=== PATIENT | male | born 2000 | race Caucasian/White ===

== ENCOUNTER 2020-05-11 03:33 | Emergency (ER) | payer OTHER, SELFPAY ==
[2020-05-11 03:42] VITALS: BP 147/73; PULSE 61; RESP 16; TEMP 37.1; O2SAT 100
--- NOTE | 2020-05-11 03:46 | PC.NURSE ---
reviewed home medications, during documentation Nick dispensed lexapro & wellbutrin to patient end of march. Patient & mom cont to deny on any medications
--- NOTE | 2020-05-11 03:55 | ED.GENADULT ---
HPI - General Adult General Chief complaint: Unspecified Stated complaint: headache History of Present Illness HPI narrative: 20-year-old male presents with his mother with some pressure headache in mid frontal sinus area started this this morning has been off and on for about a week but intensified this morning pressure-like sensation with nasal congestion, chills no fevers no nausea vomiting no shortness of breath no blurry vision does feel like there is ear pressure with no chest pain no abdominal pain. Onset (ago): day(s) Location: head Radiation: non-radiation Severity: moderate Severity scale (1-10): 8 Quality: other ( Pressure sensation) Pain Consistency: constant Treatments prior to arrival: NSAID Related Data Allergies Allergy/AdvReac Type Severity Reaction Status Date / Time No Known Allergies Allergy Verified 05/11/20 03:44 Review of Systems Review of Systems: All systems reviewed & are unremarkable except as noted in HPI and below [facility] Past Medical History Medical History Depression Exam Const: General: cooperative, healthy appearing, comfortable, no acute distress and well developed HENMT: Head: normal to inspection Head images: 1. tender with palpation Ears: TM abnormal General nose exam: Abnormal mucous membranes and turbinates present Face and sinus: Facial tenderness on exam of face and sinuses Face images: 1. frontal sinus tenderness Eyes: General: appearance normal, both eyes and all related structures Eyelids: eyelids normal Conjunctivae: conjunctivae normal Pupils: Equal, round and reactive pupils present Neck: Neck: normal visual inspection, full ROM, no lymphadenopathy and no meningeal signs Chest: Chest palpation & inspection: normal inspection of the chest and normal palpation of entire chest wall Resp: Effort & Inspection: normal respiratory effort and able to speak in complete sentences Auscultation: clear to auscultation bilaterally Cardio: Jugular venous distension: no JVD Palpation: normal PMI Rate: regular rate Rhythm: regular rhythm Heart sounds: S1 normal heart sound present and S2 normal heart sound present Psych: Appearance: grossly normal and well kempt Mental Status: mental status grossly normal Speech and movement: Normal speech and movement present Course Course Emergency Course: Pain level improved with tordal Vital Signs Vital signs: Vital Signs Temperature 37.1 C 05/11/20 03:42 Pulse Rate 61 05/11/20 03:42 Respiratory Rate 16 05/11/20 03:42 Blood Pressure 147/73 H 05/11/20 03:42 Pulse Oximetry 100 05/11/20 03:42 Temperature 37.1 C 05/11/20 03:42 Pulse Rate 61 05/11/20 03:42 Respiratory Rate 16 05/11/20 03:42 Blood Pressure 147/73 H 05/11/20 03:42 Pulse Oximetry 100 05/11/20 03:42 Medical Decision Making Vital Signs Vital Signs: Vital Signs Temperature 37.1 C 05/11/20 03:42 Pulse Rate 61 05/11/20 03:42 Respiratory Rate 16 05/11/20 03:42 Blood Pressure 147/73 H 05/11/20 03:42 Pulse Oximetry 100 05/11/20 03:42 Temperature 37.1 C 05/11/20 03:42 Pulse Rate 61 05/11/20 03:42 Respiratory Rate 16 05/11/20 03:42 Blood Pressure 147/73 H 05/11/20 03:42 Pulse Oximetry 100 05/11/20 03:42 Critical Care Time Critical Care Time Critical Care Time: No Discharge Plan Discharge Clinical Impression: Sinus headache Sinusitis Qualifiers: Sinusitis location: frontal Chronicity: acute Recurrence: non-recurrent Qualified Code(s): J01.10 - Acute frontal sinusitis, unspecified Patient Disposition: Home, Self-Care Condition: Stable Instructions: Antibiotic Form, Sinusitis (ED) Additional Instructions: can take Claritin daily x1 week, take medicine as prescribed and follow-up with primary care physician if symptoms persist or worsen. Prescriptions: New azithromycin [Zithromax Z-Angelito] 250 mg tablet
[2020-05-11] MEDS: KETOROLAC (*BKC) 60 MG/2 ML VIAL IM (03:58)
[2020-05-11 04:05] VITALS: BP 140/70; PULSE 73; RESP 16; TEMP 36.6; O2SAT 98
== END 2020-05-11 04:06 | disposition home or self-care (01) ==
PROVIDERS: Emergency Provider Emergency Medicine; PCP Family Medicine
DX: J01.10 Acute frontal sinusitis, unspecified (principal)
CPT/HCPCS: 96372; 99283; J1885

== ENCOUNTER 2022-05-06 08:27 | Emergency (ER) | payer OTHER, SELFPAY ==
[2022-05-06 08:39] VITALS: BP 120/76; PULSE 61; RESP 16; TEMP 36.8; O2SAT 100
--- NOTE | 2022-05-06 09:15 | ED.EAR ---
HPI - Ear Problem General Chief complaint: Ear Stated complaint: EARACHE/CLOGGED Time Seen by Provider: 05/06/22 09:04 Source: patient Mode of arrival: ambulatory Limitations: no limitations History of Present Illness HPI Narrative: Patient presents today complaining of left ear clogging with absent hearing today. He has been using wax softening drops since yesterday without relief of symptoms. Denies pain or any additional symptoms. Related Data Home Medications Medication Instructions Recorded Confirmed No Home Medications 05/06/22 05/06/22 Allergies Allergy/AdvReac Type Severity Reaction Status Date / Time No Known Allergies Allergy Verified 05/06/22 08:58 Review of Systems Review of Systems: CONSTITUTIONAL: Denies body aches, fever, chills, or sweats. EYES: Denies visual changes, redness, or discharge. ENT: Denies rhinorrhea, congestion, sore throat, or otalgia.+ left ear clogging and absent hearing CARDIOVASCULAR: Denies chest pain, palpitations, or edema. RESPIRATORY: Denies cough or dyspnea. GASTROINTESTINAL: Denies abdominal pain, nausea, vomiting, or diarrhea. GENITOURINARY: Denies dysuria or hematuria. SKIN: Denies rash, itching, or wounds. MUSCULOSKELETAL: Denies back pain, joint pain, or myalgia. NEUROLOGIC: Denies headache, numbness, tingling, or weakness. PSYCH: Denies depression or anxiety. [facility] Past Medical History Medical History Depression Comments At time of signature, I have reviewed and agree with nursing past medical, surgical, social and family history unless otherwise noted. Please see nursing chart for further information. There is no relevant family history pertinent to the presenting complaint Exam Narrative: GENERAL: Well-appearing, well-nourished, and in no acute distress. HEAD: Normocephalic, atraumatic. EYES: EOMI. No redness or drainage. Conjunctivae normal. ENT: Mucous membranes pink and moist. Nares clear. No rhinorrhea. Bilateral cerumen impactions, left greater than right. See procedure note NECK: Normal AROM. CHEST: No respiratory distress. EXTREMITIES: Normal range of motion. No edema. SKIN: Warm, dry, no rash. Capillary refill normal. Normal skin turgor. NEURO: No focal deficits. Alert and oriented x3. Gait steady. PSYCH: Normal affect. No signs of depression or anxiety. Course Course Level of Care: Express Care Visit Vital Signs Vital signs: Vital Signs Temperature 98.2 F 05/06/22 08:39 Pulse Rate 61 05/06/22 08:39 Respiratory Rate 16 05/06/22 08:39 Blood Pressure 120/76 05/06/22 08:39 Pulse Oximetry 100 05/06/22 08:39 Oxygen Delivery Room Air 05/06/22 08:39 Temperature 98.2 F 05/06/22 08:39 Pulse Rate 61 05/06/22 08:39 Respiratory Rate 16 05/06/22 08:39 Blood Pressure 120/76 05/06/22 08:39 Pulse Oximetry 100 05/06/22 08:39 Oxygen Delivery Room Air 05/06/22 08:39 Reviewed Procedures Ear Wax Removal Both Ears: Ear Wax Removal Date: 05/06/22 Ear Wax Removal Time: 09:16 Results: Re-examined: cerumen removed completely TM Examination: TM(s) intact, normal appearance Ear Canal Exam: atraumatic Patient Tolerated Procedure: well Complications: no problems Technique: ear canal curetted Medical Decision Making Differential Diagnosis Differential Diagnosis: Otitis media, otitis externa, ruptured TM, serous otitis, eustachian tube dysfunction, cerumen impaction Vital Signs Vital Signs: Vital Signs Temperature 98.2 F 05/06/22 08:39 Pulse Rate 61 05/06/22 08:39 Respiratory Rate 16 05/06/22 08:39 Blood Pressure 120/76 05/06/22 08:39 Pulse Oximetry 100 05/06/22 08:39 Oxygen Delivery Room Air 05/06/22 08:39 Temperature 98.2 F 05/06/22 08:39 Pulse Rate 61 05/06/22 08:39 Respiratory Rate 16 05/06/22 08:39 Blood Pressure 120/76 05/06/22 08:39 Pulse Oxime
== END 2022-05-06 09:23 | disposition home or self-care (01) ==
PROVIDERS: Emergency Provider Nurse Practitioner; PCP Family Medicine
DX: H61.23 Impacted cerumen, bilateral (principal)
CPT/HCPCS: 69210; 99212; G0463

== ENCOUNTER 2023-01-24 14:06 | Emergency (ER) | payer OTHER, SELFPAY ==
[2023-01-24] VITALS (22 sets, daily range): BP systolic 116–142; BP diastolic 52–77; PULSE 64–95; RESP 9–28; TEMP 36.1; O2SAT 98–100
--- NOTE | ~2023-01-24 | XR_ITS ---
EXAMINATION: XR chest 2V DATE: 01/24/2023 15:56 INDICATION: Syncope. Vomiting. TECHNIQUE: Frontal and lateral views of the chest were obtained. COMPARISON: None. FINDINGS: There is no pneumonia, pleural effusion, or pneumothorax. The heart size is normal. IMPRESSION: 1. No acute cardiopulmonary disease. Reviewed, dictated and finalized at location E.
--- NOTE | ~2023-01-24 | CT_ITS ---
EXAMINATION: CT brain wo con DATE: 01/24/2023 15:49 INDICATION: Syncope. TECHNIQUE: Computed tomography (CT) of the head was performed without intravenous contrast. The mA wa s adjusted according to patient size. Iterative reconstruction technique was employed. The dose-lengt h product was 605.33 mGy-cm. COMPARISON: None FINDINGS: There is no intracranial hemorrhage, acute infarction, or abnormal intracranial mass lesion . The ventricles are normal in size. The orbits are normal. The paranasal sinuses are clear. The mast oid air cells are normal. IMPRESSION: 1. Normal brain. Reviewed, dictated and finalized at location E. IMPRESSION: 1. Normal brain.
[2023-01-24 14:36] LABS: Basophils Absolute Auto 0.1 K/mm3 (0.0-0.1); Basophils Percent Auto 0.7 % (0.2-1.2); Eosinophils Absolute Auto 0.2 K/mm3 (0-0.3); Eosinophils Percent Auto 1.3 % (0-4.4); Hematocrit 46.3 % (42.0-52.0); Hemoglobin 15.5 g/dL (14.0-18.0); Immature Granulocyte Absolute 0.09 K/mm3 (0.00-0.031); Immature Granulocyte Percent A 0.7 % (0-0.5); Lymphocytes Absolute Auto 3.65 K/mm3 (0.9-3.2); Lymphocytes Percent Auto 29.6 % (18.3-44.2); Mean Corpuscular HGB Conc 33.5 g/dl (32-36); Mean Corpuscular Hemoglobin 31.1 pg (26-34); Mean Corpuscular Volume 92.8 fl (80-100); Mean Platelet Volume 11.8 fl (7.4-10.4); Monocytes Absolute Auto 1.2 K/mm3 (0.1-0.6); Monocytes Percent Auto 9.5 % (2.6-8.5); Neutrophils Absolute Auto 7.2 K/mm3 (1.3-6.7); Neutrophils Percent Auto 58.2 % (45.5-73.1); Platelet Count Result 253 k/mm3 (150-375); Red Blood Count 4.99 M/mm3 (4.6-6.20); Red Cell Distribution Width 12.1 % (11.5-14.5); White Blood Count 12.4 K/mm3 (4.5-10.0)
[2023-01-24 14:43] LABS: Appearance Urine Clear (Clear); Bilirubin Urine Negative (Negative); Blood Urine Negative (Negative); Color Urine Yellow (Yellow); Glucose Urine UA Negative (Negative); Ketones Urine Negative (Negative); Leukocyte Esterase Ur Negative LEU/UL (Negative); Nitrate Urine Negative (Negative); Protein Urine Negative (Negative); Specific Grav Ur 1.005 (1.001-1.035); Urobilinogen Urine 0.2 mg/dL (<2.0); pH Urine 5.5 (5.0-9.0)
[2023-01-24 14:46] LABS: Add Urine Microscopic? NO
[2023-01-24 14:49] LABS: Alanine Aminotransferase 70 U/L (6-50); Albumin Level 4.9 g/dL (3.5-5.1); Alkaline Phosphatase 42 U/L (38-126); Anion Gap 14 mmol/L (8-16); Aspartate Amino Transferase 45 U/L (17-59); Bilirubin,Total 0.6 mg/dL (0.2-1.3); Blood Urea Nitrogen 17 mg/dL (9-20); Calcium 9.1 mg/dL (8.4-10.2); Carbon Dioxide 23 mmol/L (22-30); Chloride 102 mmol/L (98-107); Estimated CRCL calculation 96 ml/min; Estimated Glomerular Filt Rate > 60; Glucose 113 mg/dL (65-110); Lipase 132 U/L (23-300); Potassium 2.9 mmol/L (3.4-5.0); Sodium 139 mmol/L (137-145)
--- NOTE | 2023-01-24 15:06 | ECG_ITS ---
Measurements Intervals [place] Rate: 71 P: 71 DC: 136 QRS: -32 QRSD: 143 T: 76 QT: 420 QTc: 459 Interpretive Statements SINUS RHYTHM LEFT ATRIAL ENLARGEMENT VENTRICULAR PREEXCITATION/WPW ABNORMAL ECG NO PREVIOUS ECG AVAILABLE FOR COMPARISON Electronically Signed On 01-25-2023 15:30:52 CDT by Toy Huynh M.D.
[2023-01-24] MEDS: SODIUM CHLORIDE 0.9% IV 1,000 ML 999 ML IV CONT ×2 (15:23→15:24)
[2023-01-24] MEDS: POTASSIUM CHLORIDE 20 MEQ ER TABLET 40 MEQ PO ×2 (15:23→18:00)
--- NOTE | 2023-01-24 15:31 | ED.GENADULT ---
HPI - General Adult General Chief complaint: Nausea/Vomiting/Diarrhea Stated complaint: dyspnea, dizzy Time Seen by Provider: 01/24/23 14:25 Source: patient, family and RN notes reviewed Mode of arrival: ambulatory Limitations: no limitations History of Present Illness HPI narrative: Patient is a 22 y/o male who presents to the ED with c/o syncopal episode. Patient reports he was riding in his [employer]'s car and they were delivering [employer] orders this afternoon. Patient began feeling unwell and wanted to go home. He reported feeling lightheaded, nauseous, sweaty. He began having tunnel vision and heart palpitations. He states he noticed his heart rate on his Apple Watch to be elevated up to 115-120 bpm. Patient then had a syncopal episode that his fianc?e witnessed. She states he was nonresponsive with his eyes rolled in the back of his head for approximately 20 seconds before he came to. Patient then had several episodes of vomiting after regaining full consciousness. His fianc?e then brought him here. Patient still feels somewhat lightheaded currently. Nausea resolved. No abdominal pain. Denies chest pain or shortness of breath. Denies any headache or vision changes. He does mention that he saw his primary care doctor on Wednesday as he has had been having some intermittent palpitations, left-sided chest pain/left shoulder pain. He notes a history of previous left shoulder surgery and thought this may be related. 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 He states he was referred to a willower. Mother at bedside reports a family history of coronary disease, but denies family history of sudden cardiac . Per triage note, patient had a marijuana edible around 11 AM. Related Data Home Medications Medication Instructions Recorded Confirmed No Home Medications 05/06/22 05/06/22 Allergies Allergy/AdvReac Type Severity Reaction Status Date / Time No Known Allergies Allergy Verified 01/24/23 14:28 Review of Systems Review of Systems: CONSTITUTIONAL: Denies fever, chills, or sweats. EYES: Denies visual changes. CARDIOVASCULAR: See HPI. RESPIRATORY: Denies dyspnea. GASTROINTESTINAL: See HPI. MUSCULOSKELETAL: Denies back pain, joint pain, or myalgia. NEUROLOGIC: See HPI. All systems reviewed & are unremarkable except as noted in HPI and below PMFSH Past Medical History Medical History Depression Exam Narrative: GENERAL: Well appearing, obese with BMI of 31.4, non-toxic, in no acute distress. HEAD: Normocephalic, atraumatic. NECK: Supple. No adenopathy, no masses. RESPIRATORY: Airway patent, respirations nonlabored. Clear to auscultation bilaterally, no rales, rhonchi, wheezing. CARDIOVASCULAR: Regular rate and rhythm without murmurs, rubs, or gallops. Peripheral pulses 2+ and equal bilaterally. ABDOMINAL: Soft, nontender, nondistended, no hepatosplenomegaly. Normoactive BS. MUSCULOSKELETAL: Moves all extremities. Strength/ROM intact without gross deformities. No edema. SKIN: Warm, dry, normal color. No rashes. NEURO: A&O X3. Speech clear. Cranial nerves II-XII grossly intact. Steady gait. No ataxic movements. Equal locker operator bilaterally. Strength 5 out of 5 in upper and lower extremities bilaterally. No focal neurologic deficits. PSYCHIATRIC: Appropriate mood and affect. Normal interaction. Course Vital Signs Vital signs: Vital Signs Temperature 97.0 F L 01/24/23 14:07 Pulse Rate 79 01/24/23 14:07 Respiratory Rate 20 01/24/23 14:07 Blood Pressure 141/52 H 01/24/23 14:07 Pulse Oximetry 99 01/24/23 14:07 Oxygen Delivery Room Air 01/24/23 14:07 Temperature 97.0 F L 01/24/23 14:07 Pulse Rate 68 01/24/23 16:17 Respiratory Rate 19 01/24/23 16:17 Blood Pressure 127/74 01/24/23 16:16 Pulse Oximetry 100 01/24/23 16:17 Oxygen Delivery Room Air
[2023-01-24 15:45] LABS: Magnesium 2.2 mg/dL (1.6-2.3)
[2023-01-24 15:57] LABS: Troponin I < 0.012 ng/mL (0.000-0.034)
== END 2023-01-24 18:28 | disposition home or self-care (01) ==
PROVIDERS: Preventive Medicine Aerospace Medicine; Emergency Provider Physician Assistant; PCP Family Medicine
DX: R55 Syncope and collapse (principal); R00.2 Palpitations; I45.6 Pre-excitation syndrome; E87.6 Hypokalemia; R94.31 Abnormal electrocardiogram [ECG] [EKG]
CPT/HCPCS: 36415; 70450; 71046; 80053; 81003; 83690; 83735; 84484; 85025; 93005; 96360; 96361; 99284; A9270; J7030

== ENCOUNTER 2023-02-06 16:40 | Emergency (ER) | payer OTHER, SELFPAY ==
--- NOTE | ~2023-02-06 | XR_ITS ---
XR chest 2V DATE: 02/06/2023 17:07 INDICATION: Chest pressure TECHNIQUE: AP and lateral views COMPARISON: 01/24/2023 PA and lateral chest FINDINGS: A heart monitor device. Normal heart size. No hilar or mediastinal enlargement. No pulmonary infiltrate or consolidation, pleural effusion or pulmonary vascular congestion or pneumo thorax is detected. Mild thoracic dextroscoliosis. IMPRESSION: No active cardiopulmonary disease Reviewed, dictated and finalized at location A.
[2023-02-06 16:45] VITALS: BP 139/81; PULSE 86; RESP 13; O2SAT 100
[2023-02-06 16:47] VITALS: BP 139/81; PULSE 80; RESP 14; O2SAT 100
--- NOTE | 2023-02-06 16:49 | ECG_ITS ---
Measurements Intervals [place] Rate: 78 P: 66 NV: 125 QRS: -5 QRSD: 138 T: 88 QT: 396 QTc: 453 Interpretive Statements SINUS RHYTHM WITH SINUS ARRHYTHMIA VENTRICULAR PREEXCITATION/WPW COMPARED TO ECG 01/24/2023 15:24:43 SINUS ARRHYTHMIA NOW PRESENT Electronically Signed On 02-07-2023 11:12:33 CDT by Juani Barajas MD
--- NOTE | 2023-02-06 16:53 | ED.ARRPALP ---
HPI - Arrhythmia/Palpitations General Chief Complaint: Arrhythmia/Palpitations Stated Complaint: Dizziness, Syncopal Episode Time Seen by Provider: 02/06/23 16:51 Source: patient and RN notes reviewed Mode of arrival: ambulatory Limitations: no limitations History of Present Illness HPI narrative: 22 years old white male came to the emergency room by private car with lightheadedness and intermittent feeling like she is going to pass out. Patient reported the highest heart rate at that time was 111. Patient had a recent diagnosis of WPW with blacking out 2 weeks ago. Currently have a Holter monitor on. On arrival to the ED patient feeling much better, denies any fever, chills, nausea, vomiting, chest pain or shortness of breath or headache. History of anxiety and panic attack. He denies any drug use or abuse. Related Data Allergies Allergy/AdvReac Type Severity Reaction Status Date / Time No Known Allergies Allergy Verified 02/06/23 16:50 Review of Systems Review of Systems: All systems reviewed & are unremarkable except as noted in HPI and below PMFSH Past Medical History Medical History Depression Social History Social History Smoking status: Never smoker Exam Narrative: General appearance: Well-developed, well-nourished Skin: Normal color Head: Normocephalic, nontraumatic Eyes: Clear conjunctiva ENT: Oropharynx normal, ears normal, nose normal Neck: Supple, nontender Chest and respiratory: Airway patent, no respiratory distress, no accessory muscle use Heart: Regular rate/rhythm Abdomen: Soft, nontender, no organomegaly, quiet bowel sounds Vascular: Normal peripheral pulses, normal capillary refill. Musculoskeletal: Normal range of motion, nontender back Neurologic: Alert and oriented ?3, SERVICENOW ADMINISTRATOR is normal as tested, no gross motor deficit Course Reevaluation(s) Reevaluation #1: Feeling much better, back to normal at the time of discharge. Date: 02/06/23 Time: 18:20 Consultations Consultation #1: Dr. Kim He requested that patient can go home. Because he did not get any notification about tachyarrhythmia. As long as patient have Holter monitor, he can go home, and he can come back for any syncope. Date: 02/06/23 Time: 18:52 Vital Signs Vital signs: Vital Signs Pulse Rate 86 02/06/23 16:45 Respiratory Rate 13 02/06/23 16:45 Blood Pressure 139/81 02/06/23 16:45 Pulse Oximetry 100 02/06/23 16:45 Pulse Rate 82 02/06/23 18:00 Respiratory Rate 15 02/06/23 18:00 Blood Pressure 145/88 H 02/06/23 18:00 Pulse Oximetry 100 02/06/23 18:00 Oxygen Delivery Room Air 02/06/23 16:47 MDM - Arrhythmia/Palpitations MDM Narrative Medical decision making narrative: Patient presents with lightheadedness and near syncope. Had recurrent similar symptoms in the last 2 to 3 weeks, last one was 2 weeks ago with syncope, patient found to have EKG with WPW criteria. Patient scheduled for cardiac ablation March 11, 2023. Patient had Holter monitor January 25, until now. History of anxiety and depression which runs in family. EKG on arrival to the ED showed normal sinus rhythm with WPW criteria. Work-up today showed no acute abnormalities Dr. Kim was notified and recommended to discharge patient home, and he did not have any notification that the patient have tachyarrhythmia. I agreed with antianxiety medication in the meantime. The pt was discharged to home.the pt,s condition upon discharge was fair,education was provided to the pt in reference to the final impression,discharge study results,treatment,
[2023-02-06 17:07] LABS: Basophils Absolute Auto 0.1 K/mm3 (0.0-0.1); Basophils Percent Auto 0.7 % (0.2-1.2); Eosinophils Absolute Auto 0.2 K/mm3 (0-0.3); Eosinophils Percent Auto 2.1 % (0-4.4); Hematocrit 45.6 % (42.0-52.0); Hemoglobin 15.9 g/dL (14.0-18.0); Immature Granulocyte Absolute 0.03 K/mm3 (0.00-0.031); Immature Granulocyte Percent A 0.4 % (0-0.5); Lymphocytes Absolute Auto 2.27 K/mm3 (0.9-3.2); Lymphocytes Percent Auto 30.5 % (18.3-44.2); Mean Corpuscular HGB Conc 34.9 g/dl (32-36); Mean Corpuscular Hemoglobin 31.2 pg (26-34); Mean Corpuscular Volume 89.6 fl (80-100); Mean Platelet Volume 11.9 fl (7.4-10.4); Monocytes Absolute Auto 0.8 K/mm3 (0.1-0.6); Monocytes Percent Auto 10.2 % (2.6-8.5); Neutrophils Absolute Auto 4.2 K/mm3 (1.3-6.7); Neutrophils Percent Auto 56.1 % (45.5-73.1); Platelet Count Result 210 k/mm3 (150-375); Red Blood Count 5.09 M/mm3 (4.6-6.20); Red Cell Distribution Width 11.7 % (11.5-14.5); White Blood Count 7.5 K/mm3 (4.5-10.0)
[2023-02-06 17:13] LABS: INR 0.9; Prothrombin Time 12.8 Seconds (11.1-14.7)
[2023-02-06 17:14] LABS: Partial Thromboplastin Time 27.9 SECONDS (22.3-36.8)
[2023-02-06 17:15] VITALS: BP 145/83; PULSE 80; RESP 16; O2SAT 100
[2023-02-06 17:15] LABS: Alanine Aminotransferase 50 U/L (6-50); Albumin Level 5.2 g/dL (3.5-5.1); Alkaline Phosphatase 32 U/L (38-126); Anion Gap 11 mmol/L (8-16); Aspartate Amino Transferase 45 U/L (17-59); Bilirubin,Total 0.7 mg/dL (0.2-1.3); Blood Urea Nitrogen 23 mg/dL (9-20); Calcium 9.5 mg/dL (8.4-10.2); Carbon Dioxide 25 mmol/L (22-30); Chloride 104 mmol/L (98-107); Estimated CRCL calculation 126 ml/min; Estimated Glomerular Filt Rate > 60; Glucose 83 mg/dL (65-110); Lipase 143 U/L (23-300); Sodium 140 mmol/L (137-145)
[2023-02-06 17:25] LABS: Troponin I < 0.012 ng/mL (0.000-0.034)
[2023-02-06 17:43] LABS: Thyroid Stimulating Hormone 0.833 uIU/mL (0.465-4.680)
[2023-02-06 17:45] VITALS: BP 148/99; PULSE 75; RESP 17; O2SAT 99
[2023-02-06 18:00] VITALS: BP 145/88; PULSE 82; RESP 15; O2SAT 100
== END 2023-02-06 18:23 | disposition home or self-care (01) ==
PROVIDERS: Emergency Provider Emergency Medicine; PCP Family Medicine
DX: I45.6 Pre-excitation syndrome (principal); F32.A Depression, unspecified
CPT/HCPCS: 36415; 71046; 80053; 83690; 84443; 84484; 85025; 85610; 85730; 93005; 99284

== ENCOUNTER 2024-11-02 12:44 | Emergency (ER) | payer OTHER, SELFPAY ==
[2024-11-02] VITALS (13 sets, daily range): BP systolic 64–134; BP diastolic 41–73; PULSE 61–110; RESP 12–30; TEMP 36.4; O2SAT 98–100
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
--- OUTSIDE RECORDS SUMMARY | 2024-11-02 12:46 | XMS_ITS | Clinical Summary ---
Author Organization [facility] Address [address] [place] [address] Care Team Providers Care Oil Process Stillman Name Role Phone Pantera Ness MD Primary Care Provide r Allergies No known active allergies Medications cholecalciferol (VITAMIN D-3) 5,000 unit tabletIndication s:supplement Take 1 tablet (5,000 Units total) by mouth nightly Active magnesium glycinate 100 mg tabletIndication s:supplement Take 1,000 mg by mouth nightly Active omega-3 fatty acids (FISH OIL CONCENTRATE ORAL)Indications :supplement Take 1,600 mg by mouth 2 (two) times a day Active aspirin 325 mg enteric coated tablet Take 1 tablet (325 mg total) by mouth daily 30 tablet 3 Active hydrOXYzine (VISTARIL) 25 mg capsule every 6 (six) hours as needed For anxiety and motion sickness 3 Active Active Problems Problem Noted Date Diagnosed Date 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 Currently in NSR after study. EP following -ASA 325 mg daily x 30 days -telemetry ordered -EP followed up, ok for discharge Corneal abrasion of both eyes 04/19/2023 Assessment & Plan (04/20/2023 10:07 AM MANAGER OF ENGINEERING): Bilateral eye grittiness and photosensitivity when waking from EP study. Evaluated by ophthalmology with exam cw bilateral corneal abrasion. -moxifloxacin BID x4 days per ophthalmology -refresh eye drops PRN SVT (supraventricular tachycardia) 03/12/2023 Disorder of shoulder 03/19/2014 Closed fracture of distal radius and ulna 2011 Surgical History Surgery Date Site/Laterality Comments SHOULDER ARTHROSCOPY Medical History Medical History Date Comments Motion sickness Family History Medical History Relation Name Comments Heart disease Maternal Grandfather Hypertension Mother Anesthesia problems Neg Hx Relation Name Status Comments Father Alive Maternal Grandfather Maternal Grandmother Mother Alive Social History Tobacco Use Types Packs/Day Years Used Date Smoking Tobacco: Never Smokeless Tobacco: Never AUDIT-C Answer Date Recorded Q1: How often do you have a drink containing alc ohol? 2-4 times a month 04/19/2023 Q2: How many drinks containi ng alcohol do you have on a typical day when you are drinking? 7 to 9 04/19/2023 Q3: How often do you have si x or more drinks on one occasion? Monthly 04/19/2023 Personal Safety Answer Date Recorded Have you ever been in or are you currently in a harmful physical or emotional relationship or is someone making you feel afraid or unsafe? Denies 04/19/2023 Sex and Gender Information Value Date Recorded Sex Assigned at Not on file Legal Sex Male 12:45 AM MANAGER OF ENGINEERING Gender Identity Not on file Sexual Orientation Not on file Obstetrics History Last Filed Vital Signs Vital Sign Reading Time Taken Comments Blood Pressure 137/82 05/03/2023 11:24 AM MANAGER OF ENGINEERING Pulse 88 05/03/2023 11:24 AM MANAGER OF ENGINEERING Temperature 36.9 C (98.5 F) 05/03/2023 11:24 AM MANAGER OF ENGINEERING Respiratory Rate 18 04/20/2023 8:25 AM MANAGER OF ENGINEERING Oxygen Saturation 99% 05/03/2023 11: 24 AM MANAGER OF ENGINEERING Inhaled Oxygen Concentration - - Weight 107.8 kg (237 lb 9.6 oz) 023 11:24 AM MANAGER OF ENGINEERING Height 180.3 cm (5' 11 ) 05/03/2023 11: 24 AM MANAGER OF ENGINEERING Body Mass Index 33.14 05/03/2023 11:24 AM MANAGER OF ENGINEERING Plan of Treatment Health Maintenance Due Date Last Done Comments Depression Screening 1999 Hepatitis C Screening 1999 Regular Well Visit/Exam 18-64 2017 DTaP/Tdap/Td Vaccine (7 - Td or Tdap) 12/17/2020 12/17/2010, 11/04/2004, 08/16/2000, Additional history exists Covid-19 Vaccine (2023- season) 2024 11/05/2021, 10/15/2021 Influenza Vaccine (Season Ended) 2025 03/01/2020 Hepatitis B Screening Completed 1999 , 1999, 1999 Varicella Vaccines Completed 12/14/2013, 2000 HPV Vaccines Completed 09/14/2015, 05/15, 03/12/2015 Pneumococcal vaccine <65 Aged Out No longer eligible based on patient's age to complete this topic Medical Devices Implanted Type Area Sterile Instrument Technician Device Identifier Shelf Expiration Date Model / Serial / Lot [employer] Vascade Mvp 6-12fr Venous Closure [id number] - [id number] Implanted:Qty: 1 on 04/19/2023 by Kelly Fowler MD at [facility] Vascular Closure Device [employer] 12/16/2024 [id number]- [id number] / / [id number] 10C [employer] Vascade Mvp 6-12fr Venous Closure [id number] - [id number] Implanted:Qty: 1 on 04/19/2023 by Kelly Fowler MD at [facility] Vascular Closure Device [employer] 12/16/2024 [id number]- [id number] / / [id number] 10C [employer] Device Closure Vascade Od5 Fr Femoral Artery [id number] - [id number] Implanted:Qty: 1 on 04/19/2023 by Kelly Fowler MD at [facility] Vascular Closure Device [employer] 01/19/2025 [id number] / / [id number] [employer] Device Vascular Closure Femoral Artery Bioabsorbable Dual Method Vascade 6-7fr Collagen [id number] - [id number] Implanted:Qty: 1 on 04/19/2023 by Kelly Fowler MD at [facility] Vascular Closure Device [employer] 01/05/2025 [id number] / / [id number] Insurance [facility] [id number] [facility] [employer] H[employer] Advance Directives For more information, please contact: [phone] * Full Code (Latest Code Status on File) Date Activated Date Inactivated Comments 04/19/2023 6:34 PM 04/20/2023 3:16 PM Care Teams Oil Process Stillman Relationship Specialty Start Date End Date Pantera Ness MD [address] [place], [place] [id number] PCP - General Family Medicine 02/02/23
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
[2024-11-02 13:32] LABS: Basophils Absolute Auto 0.1 K/mm3 (0.0-0.1); Basophils Percent Auto 1.1 % (0.2-1.2); Eosinophils Absolute Auto 0.2 K/mm3 (0-0.3); Eosinophils Percent Auto 2.6 % (0-4.4); Hematocrit 45.1 % (42.0-52.0); Hemoglobin 14.7 g/dL (14.0-18.0); Immature Granulocyte Absolute 0.05 K/mm3 (0.00-0.031); Immature Granulocyte Percent A 0.6 % (0-0.5); Lymphocytes Absolute Auto 2.21 K/mm3 (0.9-3.2); Lymphocytes Percent Auto 25.3 % (18.3-44.2); Mean Corpuscular HGB Conc 32.6 g/dl (32-36); Mean Corpuscular Hemoglobin 30.8 pg (26-34); Mean Corpuscular Volume 94.4 fl (80-100); Mean Platelet Volume 11.9 fl (7.4-10.4); Monocytes Absolute Auto 0.9 K/mm3 (0.1-0.6); Monocytes Percent Auto 10.1 % (2.6-8.5); Neutrophils Absolute Auto 5.3 K/mm3 (1.3-6.7); Neutrophils Percent Auto 60.3 % (45.5-73.1); Platelet Count Result 206 k/mm3 (150-375); Red Blood Count 4.78 M/mm3 (4.6-6.20); Red Cell Distribution Width 11.9 % (11.5-14.5); White Blood Count 8.7 K/mm3 (4.5-10.0)
[2024-11-02] MEDS: ONDANSETRON INJ 4 MG/2 ML VIAL IV PUSH (13:38)
[2024-11-02] MEDS: SODIUM CHLORIDE 0.9% IV 1,000 ML 999 ML IV CONT (13:39)
[2024-11-02 13:41] LABS: Alanine Aminotransferase 47 U/L (6-50); Albumin Level 4.9 g/dL (3.5-5.1); Alkaline Phosphatase 42 U/L (38-126); Anion Gap 11 mmol/L (4-12); Aspartate Amino Transferase 46 U/L (17-59); Bilirubin,Total 0.5 mg/dL (0.2-1.3); Blood Urea Nitrogen 15 mg/dL (9-20); Calcium 9.5 mg/dL (8.4-10.2); Carbon Dioxide 27 mmol/L (22-30); Chloride 101 mmol/L (98-107); Estimated CRCL calculation 101 ml/min; Estimated Glomerular Filt Rate > 60; Glucose 114 mg/dL (65-110); Lipase 149 U/L (23-300); Potassium 4.1 mmol/L (3.4-5.0); Sodium 139 mmol/L (137-145)
[2024-11-02 13:45] LABS: Prothrombin Time 13.4 Seconds (11.1-14.7)
[2024-11-02 13:46] LABS: Partial Thromboplastin Time 22.6 Seconds (22.3-36.8)
--- OUTSIDE RECORDS SUMMARY | 2024-11-02 14:51 | XMS_ITS | Clinical Summary ---
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 Currently in NSR after study. EP following -ASA 325 mg daily x 30 days -telemetry ordered -EP followed up, ok for discharge Corneal abrasion of both eyes 04/19/2023 Assessment & Plan (04/20/2023 10:07 AM STEEL CRANE OPERATOR): Bilateral eye grittiness and photosensitivity when [...] on file Legal Sex Male 12:45 AM STEEL CRANE OPERATOR Gender Identity Not on file Sexual Orientation Not on file Obstetrics History Last Filed Vital Signs Vital Sign Reading Time Taken Comments Blood Pressure 137/82 05/03/2023 11:24 AM STEEL CRANE OPERATOR Pulse 88 05/03/2023 11:24 AM STEEL CRANE OPERATOR Temperature 36.9 C (98.5 F) 05/03/2023 11:24 AM STEEL CRANE OPERATOR Respiratory Rate 18 04/20/2023 8:25 AM STEEL CRANE OPERATOR Oxygen Saturation 99% 05/03/2023 11: 24 AM STEEL CRANE OPERATOR Inhaled Oxygen Concentration - - Weight 107.8 kg (237 lb 9.6 oz) 023 11:24 AM STEEL CRANE OPERATOR Height 180.3 cm (5' 11 ) 05/03/2023 11: 24 AM STEEL CRANE OPERATOR Body Mass Index 33.14 05/03/2023 11:24 AM STEEL CRANE OPERATOR Plan of Treatment Health Maintenance Due Date [...] this topic Medical Devices Implanted Type Area Rug Frame Mounter Device Identifier Shelf Expiration Date Model / Serial / Lot [employer] Vascade Mvp 6-12fr Venous Closure [id number] - [id number] Implanted:Qty: 1 on 04/19/2023 by Kelly Fowler MD at [facility] Vascular Closure Device [employer] 12/16/2024 800-612C- 10U / / [id number] 10C [employer] Vascade Mvp 6-12fr Venous Closure [id number] - [id number] Implanted:Qty: 1 on 04/19/2023 by Kelly Fowler MD at [facility] Vascular Closure Device [employer] 12/16/2024 800-612C- 10U / / [id number] 10C [employer] Device Closure Vascade Od5 Fr Femoral Artery [id number] - [id number] Implanted:Qty: 1 on 04/19/2023 by Kelly Fowler MD at [facility] Vascular Closure Device [employer] 01/19/2025 700-500DX -05U / / [id number] [employer] Device Vascular Closure Femoral Artery Bioabsorbable Dual Method Vascade 6-7fr Collagen [id number] - [id number] Implanted:Qty: 1 on 04/19/2023 by Kelly Fowler MD at [facility] Vascular Closure Device [employer] 01/05/2025 700-580I- 05U / / [id number] 01A Insurance [facility] [place] [id number] [facility] [employer] Advance Directives For more information, please contact: [phone] * Full Code (Latest Code Status on File) Date Activated Date Inactivated Comments 04/19/2023 6:34 PM 04/20/2023 3:16 PM Care Teams Carburetor Specialist Relationship Specialty Start Date End Date Pantera Ness MD [address] [place], [place] [id number] PCP - General Family Medicine 02/02/23
--- OUTSIDE RECORDS SUMMARY | 2024-11-02 14:51 | XMS_ITS | Referral Summary ---
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 Currently in NSR after study. EP following -ASA 325 mg daily x 30 days -telemetry ordered -EP followed up, ok for discharge Corneal abrasion of both eyes 04/19/2023 Assessment & Plan (04/20/2023 10:07 AM POWER GENERATION TECHNICIAN): Bilateral eye grittiness and photosensitivity when waking [...] on file Legal Sex Male 12:45 AM POWER GENERATION TECHNICIAN Gender Identity Not on file Sexual Orientation Not on file Last Filed Vital Signs Vital Sign Reading Time Taken Comments Blood Pressure 137/82 05/03/2023 11:24 AM POWER GENERATION TECHNICIAN Pulse 88 05/03/2023 11:24 AM POWER GENERATION TECHNICIAN Temperature 36.9 C (98.5 F) 05/03/2023 11:24 AM POWER GENERATION TECHNICIAN Respiratory Rate 18 04/20/2023 8:25 AM POWER GENERATION TECHNICIAN Oxygen Saturation 99% 05/03/2023 11: 24 AM POWER GENERATION TECHNICIAN Inhaled Oxygen Concentration - - Weight 107.8 kg (237 lb 9.6 oz) 023 11:24 AM POWER GENERATION TECHNICIAN Height 180.3 cm (5' 11 ) 05/03/2023 11: 24 AM POWER GENERATION TECHNICIAN Body Mass Index 33.14 05/03/2023 11:24 AM POWER GENERATION TECHNICIAN Plan of Treatment Not on file Medical Devices Implanted Type Area Director Of Financial Aid Device Identifier Shelf Expiration Date Model / Serial / Lot [employer] Vascade Mvp 6-12fr Venous Closure [id number] - [id number] Implanted:Qty: 1 on 04/19/2023 by Kelly Fowler MD at [facility] Vascular Closure Device [employer] 12/16/2024 800-612C- 10U / / [id number] 10C [employer] Vascade Mvp 6-12fr Venous Closure [id number] - [id number] Implanted:Qty: 1 on 04/19/2023 by Kelly Fowler MD at [facility] Vascular Closure Device [employer] 12/16/2024 800-612C- 10U / / [id number] 10C [employer] Device Closure Vascade Od5 Fr Femoral Artery [id number] - [id number] Implanted:Qty: 1 on 04/19/2023 by Kelly Fowler MD at [facility] Vascular Closure Device [employer] 01/19/2025 700-500DX -05U / / [id number] [employer] Device Vascular Closure Femoral Artery Bioabsorbable Dual Method Vascade 6-7fr Collagen [id number] - [id number] Implanted:Qty: 1 on 04/19/2023 by Kelly Fowler MD at [facility] Vascular Closure Device [employer] 01/05/2025 700-580I- 05U / / [id number] [address] UMESH [place], [place] [id number] [facility] [address] [place] [place] [id number] [facility] Advance Directives For more information, please contact: [phone] * Full Code (Latest Code Status on File) Date Activated Date Inactivated Comments 04/19/2023 6:34 PM 04/20/2023 3:16 PM Care Teams Informatica Relationship Specialty Start Date End Date Pantera Ness MD [address] [place] [address] PCP - General Family Medicine 02/02/23
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
== END 2024-11-02 15:16 | disposition home or self-care (01) ==
PROVIDERS: Emergency Provider Emergency Medicine
DX: S06.0X0A Concussion without loss of consciousness, initial encounter (principal); F32.A Depression, unspecified; M47.812 Spondylosis without myelopathy or radiculopathy, cervical region; V43.62XA Car passenger injured in collision with other type car in traffic accident, initial encounter
CPT/HCPCS: 36415; 70450; 71260; 72125; 74177; 80053; 83690; 85025; 85610; 85730; 96361; 96374; 99284; J2405; J7030; L0140; Q9967